=== PATIENT | male | born 1945 | race Two or more races ===

== ENCOUNTER 2018-02-15 22:53 | Inpatient (IN) | payer SELFPAY ==
[~2018-02-15] VITALS: Ht 167.6 cm; Wt 60.8 kg
[2018-02-16] MEDS ORDERED: ASPIRIN 81MG TABLET PO ONE (01:00)
[2018-02-16 01:05] LABS: BASOPHILS % 0.5 % (0.0-2.0); EOSINOPHILS % 1.8 % (0.0-5.0); HEMATOCRIT. 45.2 % (42.0-52.0); HEMOGLOBIN. 15.4 g/dL (14.0-18.0); LYMPHOCYTES % 35.6 % (20.0-50.0); MEAN CORPUSCULAR HEMOGLOBIN 30.6 pg (28.0-32.0); MEAN PLATELET VOLUME 7.4 fl (7.4-10.4); MONOCYTES % 6.6 % (2.0-8.0); NEUTROPHILS % 55.5 % (40.0-76.0); PLATELET 339 x1000/uL (130-400); RED BLOOD CELL COUNT 5.02 mill/uL (4.7-6.1); RED CELL DISTRIBUTION WIDTH 15.1 % (11.6-14.6)
[2018-02-16 01:09] LABS: CHLORIDE 102 mEq/L (98-107)
[2018-02-16] MEDS ORDERED: DEXTROSE 50% WATER 50ML SYRINGE IV PRN (04:15)
[2018-02-16] MEDS ORDERED: DIPHENHYDRAMINE 50MG/ML VIAL IV PRN (04:15)
[2018-02-16] MEDS ORDERED: ACETAMINOPHEN 325MG TABLET PO PRN (04:15)
[2018-02-16] MEDS ORDERED: MAGNESIUM/ALUMINUM HYDROXIDE/SIMETHICONE 30ML UDC PO PRN (04:15)
[2018-02-16] MEDS ORDERED: ONDANSETRON 4MG ODT PO PRN (04:15)
[2018-02-16] MEDS ORDERED: LORAZEPAM 0.5MG TABLET PO PRN (04:15)
[2018-02-16] MEDS ORDERED: CLONIDINE 0.1MG TABLET PO PRN (04:15)
[2018-02-16] MEDS ORDERED: METF500T6 MT (04:45)
[2018-02-16 04:59] VITALS: BP 139/81
[2018-02-16] MEDS: SODIUM CHLORIDE 0.9% INJ 3ML FLUSH IVF SCH ×3 (06:17→23:48)
[2018-02-16] MEDS: BLOOD SUGAR DIAGNOSTIC STRIP TEST SCH ×4 (06:31→20:48)
[2018-02-16 08:00] VITALS: BP 125/69
[2018-02-16] MEDS: ENOXAPARIN 40MG/0.4ML SYR SUBCUT SCH (08:35)
[2018-02-16] MEDS: ASPIRIN 81MG EC TABLET PO SCH (08:35)
[2018-02-16] MEDS: INSULIN LISPRO 100 UNITS/ML SUBCUT SCH ×4 (08:38→20:48)
[2018-02-16 09:57] LABS: LDL CHOLESTEROL 116 mg/dL (5-100)
[2018-02-16 09:58] LABS: HDL CHOLESTEROL 34 mg/dL (40-59)
[2018-02-16] MEDS ORDERED: INSULIN GLARGINE UD 100 UNITS/ML SYR SUBCUT SCH (10:00)
[2018-02-16] MEDS: INSULIN GLARGINE UD 100 UNITS/ML SYR SUBCUT SCH (11:32)
[2018-02-16 11:33] VITALS: BP 126/77
[2018-02-16 16:00] VITALS: BP 132/80
[2018-02-16 20:00] VITALS: BP 124/78
[2018-02-16] MEDS ORDERED: ATORVASTATIN CALCIUM 10MG TABLET PO SCH (21:00)
[2018-02-17] VITALS: BP 131/81
[2018-02-17 04:00] VITALS: BP 103/72
[2018-02-17] MEDS: SODIUM CHLORIDE 0.9% INJ 3ML FLUSH IVF SCH ×2 (05:57→17:17)
[2018-02-17 06:47] LABS: BASOPHILS % 0.5 % (0.0-2.0); EOSINOPHILS % 1.8 % (0.0-5.0); HEMATOCRIT. 46.9 % (42.0-52.0); HEMOGLOBIN. 15.9 g/dL (14.0-18.0); LYMPHOCYTES % 27.5 % (20.0-50.0); MEAN CORPUSCULAR HEMOGLOBIN 30.3 pg (28.0-32.0); MEAN CORPUSCULAR VOLUME 89.7 fL (80.0-94.0); MEAN PLATELET VOLUME 7.6 fl (7.4-10.4); MONOCYTES % 7.4 % (2.0-8.0); NEUTROPHILS % 62.8 % (40.0-76.0); PLATELET 353 x1000/uL (130-400); RED BLOOD CELL COUNT 5.23 mill/uL (4.7-6.1); RED CELL DISTRIBUTION WIDTH 15.1 % (11.6-14.6)
[2018-02-17 06:54] LABS: CHLORIDE 103 mEq/L (98-107)
[2018-02-17] MEDS: BLOOD SUGAR DIAGNOSTIC STRIP TEST SCH ×2 (07:20→12:20)
[2018-02-17] MEDS: ENOXAPARIN 40MG/0.4ML SYR SUBCUT SCH (08:25)
[2018-02-17] MEDS: ASPIRIN 81MG EC TABLET PO SCH (08:25)
[2018-02-17] MEDS: INSULIN LISPRO 100 UNITS/ML SUBCUT SCH ×2 (08:26→13:25)
[2018-02-17] MEDS: INSULIN GLARGINE UD 100 UNITS/ML SYR SUBCUT SCH (11:14)
[2018-02-17 12:00] VITALS: BP 113/67
[2018-02-17 16:00] VITALS: BP 109/73
[2018-02-17 17:10] VITALS: BP 109/73
== END 2018-02-17 17:53 | disposition home or self-care (01) | DRG 203 ==
LOC: ER 22:53 → 6WST 02-16 02:04 → EDBEDREQTM 02-16 02:08 → EDBEDREQ 02-16 02:08 → ENRESERV 02-16 02:29
PROVIDERS: ADMIT Internal Medicine; ATTEND Internal Medicine
DX: R07.89 Other chest pain (principal); E11.65 Type 2 diabetes mellitus with hyperglycemia; E66.9 Obesity, unspecified; Z96.1 Presence of intraocular lens; E78.5 Hyperlipidemia, unspecified; H93.19 Tinnitus, unspecified ear; I10 Essential (primary) hypertension; Z83.3 Family history of diabetes mellitus; Z98.41 Cataract extraction status, right eye; Z68.21 Body mass index [BMI] 21.0-21.9, adult
CPT/HCPCS: 36415; 71045; 80048; 80053; 80061; 82962; 83880; 84484; 85025; 93005; 93306; 99285; J1650; J1815